=== PATIENT | male | born 1945 | race Caucasian/White ===

== ENCOUNTER 2024-03-17 19:11 | Inpatient (IN) | payer OTHER ==
[~2024-03-17] VITALS: Ht 172.7 cm; Wt 90.4 kg
[~2024-03-17 19:11] MED LIST: AMLO5TAB4 PO; AMOX500C2 PO; CLAR-61 PO; METR-154 PO; PRO40 PO
[2024-03-17 19:36] VITALS: BP_SYST 143; PULSE 94; RESP 19; TEMP 99.4; O2SAT 100
[2024-03-17 20:44] LABS: BASOPHILS % (AUTO) 0.8 % (0.0-2.0); EOSINOPHILS # (AUTO) 0.1 K/uL (0.0-0.4); EOSINOPHILS % (AUTO) 2.8 % (0.0-4.0); LYMPHOCYTES # (AUTO) 1.4 K/uL (1.0-5.5); LYMPHOCYTES % (AUTO) 26.8 % (20.5-51.5); MEAN CORPUSCULAR HEMOGLOBIN 17 pg (27-31); MEAN CORPUSCULAR HGB CONC 30 % (32-36); MEAN CORPUSCULAR VOLUME 57 fL (79.0-98.0); MONOCYTES # (AUTO) 0.5 K/uL (0.0-1.0); MONOCYTES % (AUTO) 8.7 % (1.7-9.3); NEUTROPHILS # (AUTO) 3.2 K/uL (1.8-7.7); NEUTROPHILS % (AUTO) 60.9 % (40.0-70.0); PLATELET COUNT (AUTO) 244 K/uL (130-430); RED BLOOD CELL COUNT(AUTO) 3.35 MIL/uL (4.2-6.2); RED CELL DISTRIBUTION WIDTH 21.5 % (9.0-15.0); WHITE BLOOD COUNT (AUTO) 5.2 K/uL (4.8-10.8)
[2024-03-17 20:56] LABS: ANION GAP 10 (5-15); CALCIUM 8.7 mg/dL (8.4-11.0); CARBON DIOXIDE 22 mmol/L (23-29); CHLORIDE 108 mmol/L (98-107); CREATININE 1.65 mg/dL (0.55-1.30); GLUCOSE 134 mg/dL (74-106); POTASSIUM 4.7 mmol/L (3.5-5.1); SODIUM SERUM 140 mmol/L (136-145); UREA NITROGEN, BLOOD 27 mg/dL (8-21)
[2024-03-17 21:23] LABS: HEMOGLOBIN 5.7 g/dL (14.0-18.0)
[2024-03-17 21:24] LABS: HEMATOCRIT 19.2 % (36-54)
[2024-03-17] MEDS ORDERED: HYDROcodone/ACETAMIN 5-325 MG TAB (NORCO/ VICODIN) PO PRN (22:15)
[2024-03-17] MEDS ORDERED: HYDROcodone/ACETAMIN 10-325 MG TAB PO PRN (22:15)
[2024-03-17] MEDS ORDERED: ONDANSETRON HCL 4 MG/2 ML VIAL IVP PRN (22:15)
[2024-03-17] MEDS ORDERED: ALBUTEROL SULFATE 0.083% 2.5 MG/3 ML VIAL.NEB INH PRN (22:15)
[2024-03-17 22:38] LABS: ANISOCYTOSIS 2+; HYPOCHROMASIA 3+; OVALOCYTES MODERATE; STOMATOCYTES FEW; TEAR DROP CELLS MODERATE
[2024-03-17] MEDS: PANTOPRAZOLE SODIUM 40 MG/VIAL (PROTONIX) IVP SCH (23:04)
[2024-03-18 00:02] VITALS: BP_SYST 128; PULSE 75; RESP 20; TEMP 98.1; O2SAT 97
[2024-03-18 08:25] VITALS: BP_SYST 139; PULSE 69; RESP 16; TEMP 98; O2SAT 98
[2024-03-18 11:43] LABS: BASOPHILS % (AUTO) 0.9 % (0.0-2.0); EOSINOPHILS # (AUTO) 0.1 K/uL (0.0-0.4); EOSINOPHILS % (AUTO) 2.8 % (0.0-4.0); HEMATOCRIT 23.5 % (36-54); LYMPHOCYTES # (AUTO) 1.5 K/uL (1.0-5.5); LYMPHOCYTES % (AUTO) 29.7 % (20.5-51.5); MEAN CORPUSCULAR HEMOGLOBIN 18 pg (27-31); MEAN CORPUSCULAR HGB CONC 30 % (32-36); MEAN CORPUSCULAR VOLUME 62 fL (79.0-98.0); MONOCYTES # (AUTO) 0.5 K/uL (0.0-1.0); MONOCYTES % (AUTO) 9.7 % (1.7-9.3); NEUTROPHILS # (AUTO) 2.8 K/uL (1.8-7.7); NEUTROPHILS % (AUTO) 56.9 % (40.0-70.0); PLATELET COUNT (AUTO) 225 K/uL (130-430); RED BLOOD CELL COUNT(AUTO) 3.76 MIL/uL (4.2-6.2)
[2024-03-18 11:55] LABS: HEMOGLOBIN 6.9 g/dL (14.0-18.0)
[2024-03-18 11:56] LABS: RED CELL DISTRIBUTION WIDTH 26.9 % (9.0-15.0)
[2024-03-18 12:00] VITALS: BP_SYST 142; PULSE 72; RESP 18; TEMP 98.1; O2SAT 97
[2024-03-18 12:14] LABS: ALANINE AMINOTRANSFERASE 13 U/L (12-78); ALBUMIN 3.1 g/dL (3.4-4.8); ANION GAP 7 (5-15); ASPARTATE AMINOTRANSFERASE 7 U/L (10-37); CALCIUM 8.4 mg/dL (8.4-11.0); CARBON DIOXIDE 23 mmol/L (23-29); CHLORIDE 110 mmol/L (98-107); GLUCOSE 100 mg/dL (74-106); POTASSIUM 4.4 mmol/L (3.5-5.1); SODIUM SERUM 140 mmol/L (136-145); TOTAL BILIRUBIN 0.6 mg/dL (0.0-1.0); TOTAL PROTEIN, SERUM 6.7 g/dL (6.4-8.3); UREA NITROGEN, BLOOD 20 mg/dL (8-21)
[2024-03-18] MEDS: BISACODYL 5 MG TABLET.DR (DULCOLAX) PO ONE (12:26)
[2024-03-18] MEDS: BISACODYL 5 MG TABLET.DR (DULCOLAX) ONE (12:49)
[2024-03-18] MEDS: GOLYTELY / COLYTE SOLUTION 4 LITERS PO ONE (15:12)
[2024-03-18 16:00] VITALS: BP_SYST 143; PULSE 75; RESP 18; TEMP 97.9; O2SAT 98
[2024-03-18 20:49] VITALS: BP_SYST 144; PULSE 77; RESP 20; TEMP 97; O2SAT 99
[2024-03-19] VITALS (7 sets, daily range): BP systolic 139–164; PULSE 60–68; RESP 16–20; TEMP 97.1–98.4; O2SAT 97–99
[2024-03-19] MEDS ORDERED: fentaNYL CITRATE/PF 100 MCG/2 ML AMP ONE (07:06)
[2024-03-19] MEDS ORDERED: SIMETHICONE 40 MG/0.6 ML ML ONE (07:10)
[2024-03-19 08:11] LABS: BASOPHILS # (AUTO) 0.1 K/uL (0.0-0.2); EOSINOPHILS # (AUTO) 0.2 K/uL (0.0-0.4); EOSINOPHILS % (AUTO) 3.4 % (0.0-4.0); HEMATOCRIT 27.6 % (36-54); HEMOGLOBIN 8.3 g/dL (14.0-18.0); LYMPHOCYTES # (AUTO) 1.2 K/uL (1.0-5.5); LYMPHOCYTES % (AUTO) 23.3 % (20.5-51.5); MEAN CORPUSCULAR HEMOGLOBIN 19 pg (27-31); MEAN CORPUSCULAR HGB CONC 30 % (32-36); MEAN CORPUSCULAR VOLUME 64 fL (79.0-98.0); MONOCYTES # (AUTO) 0.5 K/uL (0.0-1.0); NEUTROPHILS # (AUTO) 3.2 K/uL (1.8-7.7); NEUTROPHILS % (AUTO) 62.3 % (40.0-70.0); PLATELET COUNT (AUTO) 212 K/uL (130-430); RED BLOOD CELL COUNT(AUTO) 4.32 MIL/uL (4.2-6.2); RED CELL DISTRIBUTION WIDTH 28.4 % (9.0-15.0); RETICULOCYTE COUNT 1.7 % (0.5-1.5); WHITE BLOOD COUNT (AUTO) 5.2 K/uL (4.8-10.8)
[2024-03-19 08:22] LABS: TOTAL IRON BIND. CAPACITY 353 ug/dL (250-450)
[2024-03-19 08:23] LABS: ANION GAP 10 (5-15); CALCIUM 8.5 mg/dL (8.4-11.0); CARBON DIOXIDE 22 mmol/L (23-29); CHLORIDE 106 mmol/L (98-107); CREATININE 1.24 mg/dL (0.55-1.30); GLUCOSE 87 mg/dL (74-106); POTASSIUM 3.8 mmol/L (3.5-5.1); SODIUM SERUM 138 mmol/L (136-145); UREA NITROGEN, BLOOD 13 mg/dL (8-21)
[2024-03-19 08:29] LABS: INR 1.2 (0.80-1.20); PROTHROMBIN TIME 11.9 SECS (9.5-12.5)
[2024-03-19] MEDS: MEPERIDINE 100 MG INJ. 100 MG/ML VIAL ONE (13:50)
[2024-03-19] MEDS: MIDAZOLAM HCL 5 MG/5 ML VIAL ONE (13:50)
[2024-03-19] MEDS: SOD FERRIC GLUC COMPLEX/SUC 125 MG in NS 100 ML IV SCH (15:53)
[2024-03-19] MEDS: amLODIPine BESYLATE 5 MG TABLET PO SCH (15:53)
[2024-03-20 00:30] VITALS: BP_SYST 153; PULSE 72; RESP 14; TEMP 96.8; O2SAT 98
[2024-03-20 05:56] LABS: BASOPHILS # (AUTO) 0.1 K/uL (0.0-0.2); BASOPHILS % (AUTO) 1.2 % (0.0-2.0); EOSINOPHILS # (AUTO) 0.2 K/uL (0.0-0.4); EOSINOPHILS % (AUTO) 2.8 % (0.0-4.0); HEMATOCRIT 26.4 % (36-54); LYMPHOCYTES # (AUTO) 1.3 K/uL (1.0-5.5); MEAN CORPUSCULAR HEMOGLOBIN 19 pg (27-31); MEAN CORPUSCULAR HGB CONC 30 % (32-36); MEAN CORPUSCULAR VOLUME 64 fL (79.0-98.0); MONOCYTES # (AUTO) 0.6 K/uL (0.0-1.0); MONOCYTES % (AUTO) 9.2 % (1.7-9.3); NEUTROPHILS % (AUTO) 65.8 % (40.0-70.0); PLATELET COUNT (AUTO) 206 K/uL (130-430); RED BLOOD CELL COUNT(AUTO) 4.16 MIL/uL (4.2-6.2); RED CELL DISTRIBUTION WIDTH 29.3 % (9.0-15.0); WHITE BLOOD COUNT (AUTO) 6.1 K/uL (4.8-10.8)
[2024-03-20 06:34] LABS: ALANINE AMINOTRANSFERASE 16 U/L (12-78); ALBUMIN 3.2 g/dL (3.4-4.8); ANION GAP 9 (5-15); ASPARTATE AMINOTRANSFERASE 12 U/L (10-37); CALCIUM 8.8 mg/dL (8.4-11.0); CARBON DIOXIDE 23 mmol/L (23-29); CHLORIDE 108 mmol/L (98-107); CREATININE 1.26 mg/dL (0.55-1.30); GLUCOSE 91 mg/dL (74-106); POTASSIUM 3.9 mmol/L (3.5-5.1); SODIUM SERUM 140 mmol/L (136-145); TOTAL BILIRUBIN 0.4 mg/dL (0.0-1.0); TOTAL PROTEIN, SERUM 6.9 g/dL (6.4-8.3); UREA NITROGEN, BLOOD 13 mg/dL (8-21)
[2024-03-20 08:32] VITALS: BP_SYST 131; PULSE 136; RESP 18; TEMP 97.8; O2SAT 98
[2024-03-20 08:48] LABS: BILIRUBIN,URINE NEGATIVE (NEGATIVE); BLOOD, URINE NEGATIVE (NEGATIVE); CLARITY/URINE CLEAR (CLEAR); COLOR,URINE YELLOW (YELLOW); GLUCOSE,URINE NEGATIVE (NEGATIVE); KETONES,URINE NEGATIVE (NEGATIVE); PROTEIN URINE NEGATIVE (NEGATIVE)
[2024-03-20 08:49] LABS: LEUKOCYTE ESTERASE ,URINE NEGATIVE (NEGATIVE); NITRITE, URINE NEGATIVE (NEGATIVE); UROBILINOGEN,URINE 0.2 (0.2-1.0)
[2024-03-20 09:00] VITALS: O2SAT 98
[2024-03-20 12:26] VITALS: BP_SYST 138; PULSE 73; RESP 17; TEMP 97.1; O2SAT 99
[2024-03-20] MEDS: METOPROLOL TARTRATE 50 MG TABLET PO ONE (16:28)
[2024-03-20 16:30] VITALS: BP_SYST 135; PULSE 82; RESP 17; TEMP 98.1; O2SAT 98
[2024-03-20] MEDS: DIGOXIN 0.5 MG/2 ML AMP IVP ONE ×2 (16:40→18:51)
[2024-03-20 20:01] VITALS: BP_SYST 151; PULSE 70; RESP 20; TEMP 97.5; O2SAT 97
[2024-03-20] MEDS: METOPROLOL TARTRATE 50 MG TABLET PO SCH (21:19)
[2024-03-21] MEDS: DIGOXIN 0.5 MG/2 ML AMP IVP ONE (00:58)
[2024-03-21 01:29] VITALS: BP_SYST 148; PULSE 71; RESP 18; TEMP 98.6; O2SAT 98
[2024-03-21 06:12] LABS: BASOPHILS % (AUTO) 0.5 % (0.0-2.0); EOSINOPHILS # (AUTO) 0.1 K/uL (0.0-0.4); EOSINOPHILS % (AUTO) 1.6 % (0.0-4.0); HEMATOCRIT 28.9 % (36-54); HEMOGLOBIN 8.7 g/dL (14.0-18.0); LYMPHOCYTES # (AUTO) 1.5 K/uL (1.0-5.5); LYMPHOCYTES % (AUTO) 16.2 % (20.5-51.5); MEAN CORPUSCULAR HEMOGLOBIN 19 pg (27-31); MEAN CORPUSCULAR HGB CONC 30 % (32-36); MEAN CORPUSCULAR VOLUME 64 fL (79.0-98.0); MONOCYTES # (AUTO) 0.8 K/uL (0.0-1.0); NEUTROPHILS # (AUTO) 6.8 K/uL (1.8-7.7); NEUTROPHILS % (AUTO) 72.7 % (40.0-70.0); PLATELET COUNT (AUTO) 222 K/uL (130-430); RED BLOOD CELL COUNT(AUTO) 4.51 MIL/uL (4.2-6.2); RED CELL DISTRIBUTION WIDTH 30.3 % (9.0-15.0)
[2024-03-21 07:00] LABS: ALANINE AMINOTRANSFERASE 15 U/L (12-78); ALBUMIN 3.4 g/dL (3.4-4.8); ANION GAP 9 (5-15); ASPARTATE AMINOTRANSFERASE 11 U/L (10-37); CALCIUM 8.8 mg/dL (8.4-11.0); CARBON DIOXIDE 22 mmol/L (23-29); CHLORIDE 105 mmol/L (98-107); CREATININE 1.42 mg/dL (0.55-1.30); GLUCOSE 102 mg/dL (74-106); SODIUM SERUM 136 mmol/L (136-145); TOTAL BILIRUBIN 0.5 mg/dL (0.0-1.0); TOTAL PROTEIN, SERUM 7.2 g/dL (6.4-8.3); UREA NITROGEN, BLOOD 15 mg/dL (8-21)
[2024-03-21 07:46] LABS: WHITE BLOOD COUNT (AUTO) 9.3 K/uL (4.8-10.8)
[2024-03-21 08:08] VITALS: BP_SYST 157; PULSE 63; RESP 18; TEMP 99.7; O2SAT 97
[2024-03-21 08:30] VITALS: O2SAT 97
[2024-03-21] MEDS: ACETAMINOPHEN 325 MG TABLET PO PRN (08:35)
[2024-03-21 10:58] VITALS: BP_SYST 114; PULSE 63; RESP 18; TEMP 99.2; O2SAT 98
[2024-03-21 16:21] VITALS: BP_SYST 119; PULSE 66; RESP 17; TEMP 98.4; O2SAT 97
[2024-03-21 20:01] VITALS: BP_SYST 159; PULSE 71; RESP 19; TEMP 98.9; O2SAT 97
[2024-03-22 01:15] VITALS: BP_SYST 160; PULSE 78; RESP 18; TEMP 98.6; O2SAT 99
[2024-03-22 05:04] LABS: BASOPHILS % (AUTO) 0.5 % (0.0-2.0); EOSINOPHILS # (AUTO) 0.2 K/uL (0.0-0.4); EOSINOPHILS % (AUTO) 1.8 % (0.0-4.0); HEMATOCRIT 27.7 % (36-54); HEMOGLOBIN 8.5 g/dL (14.0-18.0); LYMPHOCYTES # (AUTO) 1.5 K/uL (1.0-5.5); LYMPHOCYTES % (AUTO) 18.2 % (20.5-51.5); MEAN CORPUSCULAR HEMOGLOBIN 20 pg (27-31); MEAN CORPUSCULAR HGB CONC 31 % (32-36); MEAN CORPUSCULAR VOLUME 65 fL (79.0-98.0); MONOCYTES # (AUTO) 0.9 K/uL (0.0-1.0); MONOCYTES % (AUTO) 10.4 % (1.7-9.3); NEUTROPHILS # (AUTO) 5.8 K/uL (1.8-7.7); NEUTROPHILS % (AUTO) 69.1 % (40.0-70.0); PLATELET COUNT (AUTO) 200 K/uL (130-430); RED BLOOD CELL COUNT(AUTO) 4.29 MIL/uL (4.2-6.2); RED CELL DISTRIBUTION WIDTH 30.5 % (9.0-15.0); WHITE BLOOD COUNT (AUTO) 8.4 K/uL (4.8-10.8)
[2024-03-22 05:24] LABS: ALANINE AMINOTRANSFERASE 18 U/L (12-78); ALBUMIN 3.2 g/dL (3.4-4.8); ANION GAP 10 (5-15); ASPARTATE AMINOTRANSFERASE 11 U/L (10-37); CALCIUM 8.6 mg/dL (8.4-11.0); CARBON DIOXIDE 22 mmol/L (23-29); CHLORIDE 107 mmol/L (98-107); CREATININE 1.43 mg/dL (0.55-1.30); GLUCOSE 104 mg/dL (74-106); POTASSIUM 3.8 mmol/L (3.5-5.1); SODIUM SERUM 139 mmol/L (136-145); TOTAL BILIRUBIN 0.4 mg/dL (0.0-1.0); UREA NITROGEN, BLOOD 19 mg/dL (8-21)
[2024-03-22 08:09] VITALS: BP_SYST 154; PULSE 72; RESP 16; TEMP 98.2; O2SAT 98
[2024-03-22 09:15] VITALS: O2SAT 98
[2024-03-22] MEDS: amLODIPine BESYLATE 5 MG TABLET PO ONE (11:55)
[2024-03-22] MEDS: METOPROLOL TARTRATE 25 MG TABLET PO ONE (11:57)
[2024-03-22] MEDS ORDERED: METO25TA6 PO (12:44)
[2024-03-22 14:15] VITALS: BP_SYST 156; PULSE 68; RESP 17; TEMP 99.3; O2SAT 96
[2024-03-22 16:11] VITALS: BP_SYST 156; PULSE 69; RESP 17; TEMP 99.3; O2SAT 98
[2024-03-22 20:00] VITALS: BP_SYST 159; PULSE 76; RESP 18; TEMP 97.9; O2SAT 98
[2024-03-22] MEDS ORDERED: METOPROLOL TARTRATE 25 MG TABLET PO SCH (21:00)
[2024-03-23] MEDS ORDERED: amLODIPine BESYLATE 5 MG TABLET PO SCH (09:00)
== END 2024-03-22 21:00 | disposition home or self-care (01) | DRG 377 ==
LOC: SED 19:11 → STU 22:08 → SMU 03-22 12:17
PROVIDERS: ADMIT Family Medicine; ATTEND Family Medicine
PROC: 30233N1 Transfusion of Nonautologous Red Blood Cells into Peripheral Vein, Percutaneous Approach (ICD-10-PCS; principal; 2024-03-18)
PROC: 0DJD8ZZ Inspection of Lower Intestinal Tract, Via Natural or Artificial Opening Endoscopic (ICD-10-PCS; 2024-03-19)
PROC: 0DB78ZX Excision of Stomach, Pylorus, Via Natural or Artificial Opening Endoscopic, Diagnostic (ICD-10-PCS; 2024-03-19 13:50)
DX: K29.71 Gastritis, unspecified, with bleeding (principal); N17.0 Acute kidney failure with tubular necrosis; D62 Acute posthemorrhagic anemia; K22.70 Barrett's esophagus without dysplasia; K25.4 Chronic or unspecified gastric ulcer with hemorrhage; K64.8 Other hemorrhoids; E86.0 Dehydration; I12.9 Hypertensive chronic kidney disease with stage 1 through stage 4 chronic kidney disease, or unspecified chronic kidney disease; K21.9 Gastro-esophageal reflux disease without esophagitis; I48.0 Paroxysmal atrial fibrillation; N18.9 Chronic kidney disease, unspecified; Z87.11 Personal history of peptic ulcer disease; Z86.73 Personal history of transient ischemic attack (TIA), and cerebral infarction without residual deficits; Z86.19 Personal history of other infectious and parasitic diseases; Z79.899 Other long term (current) drug therapy; K44.9 Diaphragmatic hernia without obstruction or gangrene; K57.30 Diverticulosis of large intestine without perforation or abscess without bleeding; B96.81 Helicobacter pylori [H. pylori] as the cause of diseases classified elsewhere
CPT/HCPCS: 36415; 43239; 45378; 80048; 80053; 81001; 81003; 82272; 83540; 83550; 85025; 85044; 85610; 85730; 86886; 86900; 86901; 86920; 87081; 88305; 88312; 88313; 93005; 97110-GP; 97116-GP; 97530-GP; 99291; G0378; J1160; J2175; J2250; J2470; J2916; J3010; P9021